=== PATIENT | female | born 1940 | race Two or more races ===

== ENCOUNTER 2019-08-04 10:12 | Inpatient (IN) | payer OTHER, MEDICAID ==
[~2019-08-04] VITALS: Ht 154.9 cm; Wt 44.0 kg
[2019-08-04 11:11] LABS: Basophils # (auto) 0.1 10 ^3/uL (0-0.2); Basophils % (auto) 0.9 % (0.0-2.0); Eosinophils # (auto) 0.3 10 ^3/uL (0-0.8); Eosinophils % (auto) 3.3 % (0.0-7.0); Hematocrit 50.3 % (36.0-46.0); Hemoglobin 16.2 g/dL (12.2-16.2); Lymphocytes # (auto) 1.4 10 ^3/uL (0.4-5.4); Lymphocytes % (auto) 17.5 % (10.0-50.0); Mean Corpuscular Hemoglobin 29.5 pg (28.0-32.0); Mean Corpuscular Hgb Conc. 32.2 g/dL (32.0-36.0); Mean Corpuscular Volume 91.8 fL (80.0-100.0); Monocytes # (auto) 0.5 10 ^3/uL (0-1.3); Monocytes % (auto) 5.7 % (0.0-12.0); Neutrophils # (auto) 5.9 10 ^3/uL (1.6-8.6); Neutrophils % (auto) 72.6 % (37.0-80.0); Platelet Count (auto) 287 10^3/uL (140-450); Red Blood Cells 5.48 10^6/uL (4.0-5.20); Red Cell Distribution Width 13.9 % (11.8-14.3); White Blood Cell 8.2 10^3/uL (4.4-10.8)
[2019-08-04 11:28] LABS: Alanine Aminotransferase 32 U/L (13-56); Albumin 3.5 g/dL (3.4-5.0); Anion Gap 3 (5-15); Blood Urea Nitrogen 13 mg/dL (7-18); Calcium 8.8 mg/dL (8.5-10.1); Carbon Dioxide 32 mmol/L (21-32); Chloride 107 mmol/L (98-107); Glucose 165 mg/dL (74-106); Potassium 3.8 mmol/L (3.5-5.1); Sodium 142 mmol/L (136-145)
[2019-08-04] MEDS ORDERED: cloNIDine HCL 0.1 MG TAB PO ONE (11:30)
[2019-08-04 11:33] LABS: Alkaline Phosphatase 102 U/L (45-117); Aspartate Aminotransferase 27 U/L (15-37); BUN/Creatinine Ratio 14.1; Bilirubin, Total 0.4 mg/dL (0.2-1.0); GFR African American 76 mL/min; GFR Non-African American 63 mL/min; Total Protein 7.8 g/dL (6.4-8.2)
[2019-08-04 11:59] LABS: Urine WBC None Seen /hpf (0 - 5)
[2019-08-04 12:22] LABS: Urine Bacteria NONE SEEN /hpf (None Seen); Urine Blood Negative /uL (Negative); Urine Specific Gravity 1.003 (1.001-1.035)
[2019-08-04] MEDS ORDERED: NICOTINE 7MG/24HR TOPICAL PATCH TD ONE (13:30)
[2019-08-04] MEDS ORDERED: MORPHINE SULF INJ 2 MG/ML SYRINGE 1ML IV PRN (14:00)
[2019-08-04] MEDS ORDERED: NITROGLYCERIN 0.4 MG SL TAB SL PRN (14:00)
[2019-08-04] MEDS ORDERED: hydrALAZINE HCL 20 MG/ML VL IV PRN (14:00)
[2019-08-04] MEDS ORDERED: LORazepam 2MG/ML-1ML VIAL IV ONE (14:00)
[2019-08-04] MEDS ORDERED: traMADol HCL 50 MG TAB PO PRN (14:00)
[2019-08-04] MEDS ORDERED: amLODIPine BESYLATE 5 MG TAB PO ONE (14:15)
[2019-08-04] MEDS ORDERED: PANTOPRAZOLE 40 MG TAB PO ONE (14:15)
[2019-08-04] MEDS: ACETAMINOPHEN 500 MG TAB PO PRN (17:23)
[2019-08-04] MEDS ORDERED: LISI-646 PO (19:02)
[2019-08-04] MEDS ORDERED: FAM20T PO (19:02)
[2019-08-04] MEDS ORDERED: LORazepam 2MG/ML-1ML VIAL IV PRN (20:45)
[2019-08-04 21:10] LABS: Cholesterol 147 mg/dL (< 200)
[2019-08-04 21:11] LABS: HDL Cholesterol 68 mg/dL (40-59); LDL Cholesterol 60 mg/dL (< 100); Triglycerides 106 mg/dL (< 150)
[2019-08-04 21:16] LABS: Folate (Folic Acid) 17.22 ng/mL (5.38-24)
[2019-08-04] MEDS ORDERED: ATORVASTATIN 20 MG TAB PO SCH (22:00)
[2019-08-05] MEDS: ACETAMINOPHEN 500 MG TAB PO PRN ×2 (02:54→12:34)
[2019-08-05] MEDS ORDERED: ASPirin-EC 81 mg tab PO SCH (10:00)
[2019-08-05] MEDS ORDERED: PANTOPRAZOLE 40 MG TAB PO SCH (10:00)
[2019-08-05] MEDS ORDERED: amLODIPine BESYLATE 5 MG TAB PO SCH (10:00)
[2019-08-05] MEDS ORDERED: ALBUTEROL SULF 2.5 MG/0.5ML(0.5%) NEB SOLN NEB PRN (11:45)
[2019-08-05] MEDS ORDERED: FAMO-12 PO (11:45)
[2019-08-05] MEDS ORDERED: NICOTINE 21MG/24 HR TOPICAL PATCH TD ONE (11:45)
[2019-08-05] MEDS ORDERED: LISINOPRIL 20 MG TAB PO ONE (11:45)
[2019-08-05 11:54] VITALS: BP 144/75
[2019-08-05] MEDS ORDERED: ALBUTEROL SULF 2.5 MG/0.5ML(0.5%) NEB SOLN NEB SCH (12:45)
[2019-08-05] MEDS ORDERED: FAMO40TA49 PO (17:55)
[2019-08-05] MEDS: IPRATROPIUM BROM 0.5 MG/2.5ML INH SOL NEB SCH ×2 (18:00→18:17)
[2019-08-05] MEDS: ALBUTEROL SULF 2.5 MG/0.5ML(0.5%) NEB SOLN NEB SCH ×2 (18:00→18:17)
[2019-08-05] MEDS ORDERED: FAM20T PO (20:08)
[2019-08-05] MEDS ORDERED: ATOR20TA50 PO (20:08)
[2019-08-05] MEDS ORDERED: ASP81EC PO (20:08)
[2019-08-06] MEDS ORDERED: NICOTINE 21MG/24 HR TOPICAL PATCH TD SCH (10:00)
[2019-08-06] MEDS ORDERED: LISINOPRIL 20 MG TAB PO SCH (10:00)
[2019-08-06] MEDS ORDERED: FAMOTIDINE 20 MG TAB PO SCH (10:00)
== END 2019-08-05 21:17 | disposition home health service (06) | DRG 556 ==
LOC: EDBD 10:12 → EDSEX 10:12 → ER 10:12 → TELE 10:13 → TELE-CENTR 18:25
PROVIDERS: ADMIT Nurse Practitioner Acute Care; ATTEND Internal Medicine
DX: M25.561 Pain in right knee (principal); F03.90 Unspecified dementia, unspecified severity, without behavioral disturbance, psychotic disturbance, mood disturbance, and anxiety; J44.9 Chronic obstructive pulmonary disease, unspecified; M25.562 Pain in left knee; K21.9 Gastro-esophageal reflux disease without esophagitis; E11.9 Type 2 diabetes mellitus without complications; R26.9 Unspecified abnormalities of gait and mobility; I10 Essential (primary) hypertension; F17.200 Nicotine dependence, unspecified, uncomplicated; R29.6 Repeated falls; R32 Unspecified urinary incontinence; T14.8XXA Other injury of unspecified body region, initial encounter; Z91.81 History of falling; W18.39XA Other fall on same level, initial encounter; Z79.84 Long term (current) use of oral hypoglycemic drugs; Z90.49 Acquired absence of other specified parts of digestive tract; Z86.73 Personal history of transient ischemic attack (TIA), and cerebral infarction without residual deficits; Y93.89 Activity, other specified; Y92.89 Other specified places as the place of occurrence of the external cause; Y99.8 Other external cause status
CPT/HCPCS: 36415; 70450; 70551; 71046; 73560; 80053; 80061; 81001; 82607; 82746; 84443; 84484; 85025; 93005; 93306; 93886; 94640; 95819; 96374; G0378